=== PATIENT | female | born 1995 | race Caucasian/White ===

== ENCOUNTER 2016-05-11 21:36 | Inpatient (IN) | payer SELFPAY ==
[~2016-05-11] VITALS: Ht 160 cm; Wt 56.0 kg
[2016-05-11 21:37] VITALS: BP 116/74; PULSE 115; RESP 18; TEMP 100.5; O2SAT 96
--- NOTE | 2016-05-11 23:53 | PD ---
HPI Chief Complaint: Back/ Neck Pain or Injury Time Seen by Provider: 23:41 Travel History International Travel<30 days: No Contact w/Intl Traveler<30days: No Traveled to known affect area: No History of Present Illness HPI This is a 21-year-old female who presents to the emergency department having back pain that starts in her neck and radiates all the way down to her tailbone , constant, worsening over the past 24 hours ever since she drove from [place] to [facility], associated with some chills and nausea with several episodes of vomiting today. She does say she's had some urinary frequency but denies any dysuria. She has had a dry cough but no rhinorrhea or sore throat. She has a history of IV drug use when she was 17 years old but denies using since then. [facility] Past Medical History Narrative Medical Bipolar disorder, depression Social History Alcohol Use: Yes (socially) Tobacco Use: No Substance Use: Yes (used IV drugs last 4 years ago) Allergies-Medications (Allergen,Severity, Reaction): Coded Allergies: Flexeril (Verified Allergy, Severe, 05/11/16) Mushroom (Verified Allergy, Severe, 05/11/16) Tuna (Verified Allergy, Severe, 05/11/16) Review of Systems Except as stated in HPI: all other systems reviewed are Neg Physical Exam Narrative GENERAL:Well appearing, no acute distress SKIN: Warm and dry. HEAD: Atraumatic. Normocephalic. EYES: Pupils equal and round. No injection or drainage. ENT: Moist mucous membranes. No posterior pharyngeal erythema or exudates. NECK: Trachea midline. CARDIOVASCULAR: Regular rate and rhythm. No murmur appreciated. RESPIRATORY: Clear to auscultation. Breath sounds equal bilaterally. GASTROINTESTINAL: Abdomen soft, non-tender, nondistended. : Bilateral CVA tenderness. MUSCULOSKELETAL: Tender to palpation over the thoracic and lumbar spine and at the sacroiliac joint NEUROLOGICAL: Awake and alert. No obvious cranial nerve deficits. Moving all extremities. PSYCHIATRIC: Appropriate mood and affect; insight and judgment normal. Data Data Last Documented VS Vital Signs Date Time Temp Pulse Resp B/P Pulse Ox O2 Delivery O2 Flow Rate FiO2 05/12/16 03:36 98.1 94 18 106/54 98 Room Air Orders Complete Blood Count With Diff (05/11/16 23:48) Comprehensive Metabolic Panel (05/11/16 23:48) ^ Insert Iv (05/11/16 23:48) Urinalysis - C+S If Indicated (05/11/16 23:48) Influenzae A/B Antigen (05/11/16 23:48) Sodium Chlor 0.9% 1000 Ml Inj (Ns 1000 M (05/12/16 00:00) C-Reactive Protein (Crp) (05/11/16 23:48) Westergren Sedimentation Rate (05/11/16 23:48) Ketorolac Inj (Toradol Inj) (05/12/16 00:00) Ondansetron Inj (Zofran Inj) (05/12/16 00:00) Urine Culture (05/11/16 23:57) Blood Culture (05/12/16 01:15) Lactic Acid (05/12/16 01:15) Sodium Chlor 0.9% 1000 Ml Inj (Ns 1000 M (05/12/16 01:15) Vancomycin Inj (Vancomycin Inj) (05/12/16 01:15) Cefepime Inj (Maxipime Inj) (05/12/16 01:15) Ct Abd/Pel W Iv Contrast(Rout) (05/12/16 ) Ed Urine Pregnancytest Poc (05/12/16 01:31) Diphenhydramine Inj (Benadryl Inj) (05/12/16 04:15) Iohexol 350 Inj (Omnipaque 350 Inj) (05/12/16 04:11) Chest, Single Ap (05/12/16 ) Drug Screen, Random Urine (05/12/16 05:10) Vancomycin Consult Pharmacy (Vancomycin (05/12/16 05:15) Cefepime Inj (Maxipime Inj) (05/12/16 23:00) Albuterol-Ipratropium Neb (Duoneb Neb) (05/12/16 05:15) Admit To Inpatient (05/12/16 ) Vital Signs (Adult) Q4H (05/12/16 05:14) Activity Oob Ad Yolanda (05/12/16 05:14) Evp Chief Exploration Officer / Telemetry .CONTINUOUS (05/12/16 05:14) Intake + Output DAYA.QSHIFT (05/12/16 05:14) Diet Regular Basic (05/12/16 Breakfast) Sodium Chlor 0.9% 1000 Ml Inj (Ns 1000 M (05/12/16 05:14) Sodium Chloride 0.9% Flush (Ns Flush) (05/12/16 05:15) Sodium Chloride 0.9% Flush (Ns Flush) (05/12/16 09:00) Ondansetron Inj (Zofran Inj) (05/12/16 05:15) Bisacodyl Supp (Dulcolax Supp) (05/12/16 05:15) Comprehensive Metabolic Panel (05/13/16 06:00) Complete Blood Count With Diff (05/13/16 06:00) Scd Bilateral/Knee High DAYA.BID (05/12/16 05:14) Carlos Bilateral/Knee High DAYA.QSHIFT (05/12/16 05:14) Acetaminophen (Tylenol) (05/12/16 05:15) Oxycodone (Roxicodone) (05/12/16 05:15) Oxycodone (Roxicodone) (05/12/16 05:15) Inpatient Certification (05/12/16 ) Admit Order (Ed Use Only) (05/12/16 05:20) Labs Laboratory Tests Test 05/11/16 05/11/16 05/12/16 23:50 23:57 01:52 White Blood Count 27.8 TH/MM3 Red Blood Count 4.69 MIL/MM3 Hemoglobin 13.3 GM/DL Hematocrit 39.4 % Mean Corpuscular Volume 84.0 FL Mean Corpuscular Hemoglobin 28.3 PG Mean Corpuscular Hemoglobin 33.7 % Concent Red Cell Distribution Width 13.3 % Platelet Count 279 TH/MM3 Mean Platelet Volume 8.9 FL Neutrophils (%) (Auto) % Lymphocytes (%) (Auto) % Monocytes (%) (Auto) % Eosinophils (%) (Auto) % Basophils (%) (Auto) % Neutrophils # (Auto) TH/MM3 Lymphocytes # (Auto) TH/MM3 Monocytes # (Auto) TH/MM3 Eosinophils # (Auto) TH/MM3 Basophils # (Auto) TH/MM3 CBC Comment AUTO DIFF Differential Total Cells 100 Counted Neutrophils % (Manual) 91 % Lymphocytes % 7 % Monocytes % 1 % Basophils % 1 % Neutrophils # (Manual) 25.3 TH/MM3 Differential Comment FINAL DIFF MANUAL Platelet Estimate NORMAL Platelet Morphology Comment NORMAL Red Cell Morphology Comment NORMAL Erythrocyte Sedimentation Rate 42 mm/hr Sodium Level 135 MEQ/L Potassium Level 3.7 MEQ/L Chloride Level 102 MEQ/L Carbon Dioxide Level 22.6 MEQ/L Anion Gap 10 MEQ/L Blood Urea Nitrogen 10 MG/DL Creatinine 0.73 MG/DL Random Glucose 88 MG/DL Calcium Level 8.7 MG/DL Total Bilirubin 0.5 MG/DL Aspartate Amino Transf 5 U/L (AST/SGOT) Alanine Aminotransferase 12 U/L (ALT/SGPT) Alkaline Phosphatase 68 U/L C-Reactive Protein 19.90 MG/DL Total Protein 7.8 GM/DL Albumin 4.0 GM/DL Urine Color YELLOW Urine Turbidity HAZY Urine pH 6.0 Urine Specific [place] 1.017 Urine Protein 30 mg/dL Urine Glucose (UA) NEG mg/dL Urine Ketones 40 mg/dL Urine Occult Blood MOD Urine Nitrite NEG Urine Bilirubin NEG Urine Urobilinogen LESS THAN 2.0 MG/DL Urine Leukocyte Esterase TRACE Urine RBC 7 /hpf Urine WBC 10 /hpf Urine Squamous Epithelial 6 /hpf Cells Urine Bacteria RARE /hpf Urine Mucus MOD /lpf Microscopic Urinalysis Comment CULTURE INDICATED Lactic Acid Level 1.0 mmol/L MDM Medical Decision Making Medical Screen Exam Complete: Yes Emergency Medical Condition: Yes Interpretation(s) Fever, tachycardia Leukocytosis 91% neutrophils Inflammatory markers are elevated Electrolytes are reassuring Lactic acid is 1 Urinalysis: Scant white blood cells CT abdomen and pelvis: Multi-segmental consolidation left lower lung Differential Diagnosis Influenza, pyelonephritis, urinary tract infection, appendicitis, epidural abscess Narrative Course This is a 21-year-old female who presents to the emergency department with fever , vomiting, back pain and malaise. She is otherwise healthy with the exception of mental health issues. She is placed in a monitor and an IV was established. She was found to have a white count of 27.8. Her inflammatory markers were elevated. Lactic acid was reassuring. Blood cultures were obtained and the patient was covered with broad-spectrum antibiotics. She was tender in her abdomen so a CT abdomen and pelvis was obtained which was negative for intra- abdominal process but did demonstrate a left lower lobe pneumonia. Urinalysis demonstrated some scant white blood cells but not enough to explain an etiology of her symptoms. Patient reports she hasn't used IV drugs in several years so I have a lower suspicion for epidural abscess, discitis or endocarditis. Patient will be admitted for continued IV antibiotics in the setting of sepsis, likely source being pneumonia. Diagnosis Primary Impression: Pneumonia Qualified Code: J18.1 - Pneumonia of left lower lobe due to infectious organism Admitting Information Admitting Physician Requests: Admit Olga Kellogg MD May 11, 2016 23:53
[2016-05-12] MEDS ORDERED: ONDANSETRON HCL 4 MG/2 ML VIAL IV ONE
[2016-05-12] MEDS ORDERED: KETOROLAC TROMETHAMINE 30 MG/ML (IVP) VIAL IV PUSH ONE
[2016-05-12 00:27] LABS: HEMATOCRIT 39.4 % (35.0-46.0); MEAN CORPUSCULAR HEMOGLOBIN 28.3 PG (27.0-34.0); MEAN CORPUSCULAR HGB CONC 33.7 % (32.0-36.0); PLATELET COUNT 279 TH/MM3 (150-450); RED BLOOD COUNT 4.69 MIL/MM3 (4.00-5.30); RED CELL DISTRIBUTION WIDTH 13.3 % (11.6-17.2); WHITE BLOOD COUNT 27.8 TH/MM3 (4.0-11.0)
[2016-05-12 00:29] LABS: BACTERIA, URINE RARE /hpf; BLOOD, URINE MOD (NEG); COMMENT (UR) CULTURE INDICATED; CULTURE IF INDICATED CULTURE INDICATED; GLUCOSE,URINE NEG (NEG); KETONE, URINE 40 mg/dL (NEG); MUCUS URINE MOD /lpf (OCC); NITRITE,URINE NEG (NEG); SQUAMOUS EPITHELIAL CELL URINE 6 /hpf (0-5); URINE COLOR YELLOW (YELLW/STRAW)
[2016-05-12 00:38] LABS: HEMO FLAGS AUTO DIFF
[2016-05-12 00:50] LABS: ALT (GPT) 12 U/L (10-53); ANION GAP 10 MEQ/L (5-15); AST (GOT) 5 U/L (15-37); BICARBONATE 22.6 MEQ/L (21.0-32.0); BLOOD UREA NITROGEN 10 MG/DL (7-18); CHLORIDE 102 MEQ/L (98-107); POTASSIUM 3.7 MEQ/L (3.5-5.1); SODIUM (NA) 135 MEQ/L (136-145)
[2016-05-12 00:58] LABS: ALKALINE PHOSPHATASE 68 U/L (45-117); TOTAL BILIRUBIN ADULT 0.5 MG/DL (0.2-1.0)
[2016-05-12] MEDS ORDERED: SODIUM CHLOR 0.9% 1000 ML INJ 1,000 ML IV ONE ×2 (01:15)
[2016-05-12] MEDS ORDERED: VANCOMYCIN INJ 850 MG in SODIUM CHLOR 0.9% 250 ML INJ 250 ML IV ONE (01:15)
[2016-05-12] MEDS ORDERED: CEFEPIME INJ 2,000 MG in SODIUM CHLORIDE 0.9% INJ 100 ML IV ONE (01:15)
[2016-05-12 01:27] LABS: BASOPHILS 1 % (0-2); NEUTROPHIL # MANUAL DIFF 25.3 TH/MM3 (1.8-7.7); POLYS (SEG NEUTROPHILS) 91 % (16-70); WBC DIFF SAMPLE 100
[2016-05-12 01:28] LABS: PLATELET ESTIMATE SMEAR NORMAL (NORMAL); PLATELET MORPHOLOGY NORMAL (NORMAL); SCAN/DIFF FINAL DIFF MANUAL
[2016-05-12 03:36] VITALS: BP 106/54; PULSE 94; RESP 18; TEMP 98.1; O2SAT 98
[2016-05-12] MEDS ORDERED: IOHEXOL 350 MG/ML 10 ML VIAL (for RAD DIAG) IV ONE (04:11)
[2016-05-12] MEDS ORDERED: diphenhydrAMINE HCL 50 MG/ML VIAL IV PUSH ONE (04:15)
--- NOTE | 2016-05-12 04:24 | RADRPT ---
EXAM DATE/TIME: 05/12/2016 04:03 [facility] COMPARISON: No previous studies available for comparison. INDICATIONS : Diffuse abdominal and back pain with fever and vomiting. IV CONTRAST: 96 cc Omnipaque 350 (iohexol) IV ORAL CONTRAST: No oral contrast ingested. RADIATION DOSE: 9.96 CTDIvol (mGy) MEDICAL HISTORY : None SURGICAL HISTORY : None. ENCOUNTER: Initial ACUITY: 1 day PAIN SCALE: 7/10 LOCATION: Bilateral abdomen TECHNIQUE: Volumetric scanning of the abdomen and pelvis was performed. Using automated exposure control and ad justment of the mA and/or kV according to patient size, radiation dose was kept as low as reasonably achievable to obtain optimal diagnostic quality images. FINDINGS: LOWER LUNGS: Abnormal appearance the left lower lobe with greater than 7 cm area of dense consolidation posterior. On the coronal reconstruction images, the appearance suggests multisegmental consolidation or colla pse. The dense consolidation extends to the diaphragm. LIVER: Homogeneous density without lesion. There is no dilation of the biliary tree. No calcified gallston es. SPLEEN: Normal size without lesion. PANCREAS: Within normal limits. KIDNEYS: Normal in size and shape. There is no mass, stone or hydronephrosis. ADRENAL GLANDS: Within normal limits. VASCULAR: There is no aortic aneurysm. BOWEL/MESENTERY: The stomach, small bowel, and colon demonstrate no acute abnormality. There is no free intraperitone al air or fluid. ABDOMINAL WALL: Within normal limits. RETROPERITONEUM: There is no lymphadenopathy. BLADDER: No wall thickening or mass. REPRODUCTIVE: Anteverted uterus. No evidence of free fluid. INGUINAL: There is no lymphadenopathy or hernia. MUSCULOSKELETAL: Within normal limits for patient age. CONCLUSION: 1. Multisegmental consolidation or collapse in the left lower lobe. No evidence of pleural effusion. 2. No acute findings in the abdomen/pelvis. Adam Bee MD on May 12, 2016 at 4:18 Board Certified Radiologist. This report was verified electronically.
[2016-05-12] MEDS ORDERED: SODIUM CHLOR 0.9% 1000 ML INJ 1,000 ML IV SCH (05:14)
[2016-05-12] MEDS ORDERED: ACETAMINOPHEN 325 MG TAB PO PRN (05:15)
[2016-05-12] MEDS ORDERED: ONDANSETRON HCL 4 MG/2 ML VIAL IVP PRN (05:15)
[2016-05-12] MEDS ORDERED: Vancomycin Consult Pharmacy 1 EA OTHER SCH (05:15)
[2016-05-12] MEDS ORDERED: RESP: ALBUTEROL 2.5 MG/IPRATROPIUM 0.5 MG NEB (PRN) NEB (05:15)
[2016-05-12] MEDS ORDERED: BISACODYL 10 MG SUPP PR PRN (05:15)
[2016-05-12] MEDS ORDERED: SODIUM CHLORIDE 0.9% FLUSH 5 ML FLUSH FLUSH PRN (05:15)
--- NOTE | 2016-05-12 06:36 | RADRPT ---
EXAM DATE/TIME: 05/12/2016 05:30 [facility] COMPARISON: CT ABDOMEN & PELVIS W CONTRAST, May 12, 2016, 4:03. INDICATIONS : Chest pain and fever. MEDICAL HISTORY : None. SURGICAL HISTORY : None. ENCOUNTER: Initial ACUITY: 2 days PAIN SCORE: 8/10 LOCATION: Bilateral chest FINDINGS: There is a large area of consolidation in the retrocardiac region with loss of delineation of a porti on of the left hemidiaphragm. The right lung is clear. The heart is normal size. No evidence of pn eumothorax. CONCLUSION: Large area of consolidation left lower lung. Adam Bee MD on May 12, 2016 at 6:34 Board Certified Radiologist. This report was verified electronically.
[2016-05-12 06:48] VITALS: BP 90/52; PULSE 92; RESP 16; O2SAT 96
[2016-05-12] MEDS ORDERED: SODIUM CHLORID 0.9% 500 ML INJ 500 ML IV ONE (08:00)
[2016-05-12 08:41] VITALS: BP 99/51; PULSE 55; RESP 17; TEMP 96.9; O2SAT 98
[2016-05-12] MEDS ORDERED: SODIUM CHLORIDE 0.9% FLUSH 5 ML FLUSH FLUSH SCH (09:00)
[2016-05-12 11:31] LABS: AUTOMATED NEUTROPHIL # 14.8 TH/MM3 (1.8-7.7); BASOPHIL # 0.1 TH/MM3 (0-0.2); BASOPHIL % 0.4 % (0.0-2.0); EOSINOPHIL # 0.2 TH/MM3 (0-0.4); HEMO FLAGS DIFF FINAL; LYMPH % 14.8 % (9.0-44.0); LYMPHOCYTE # 2.8 TH/MM3 (1.0-4.8); MEAN CELL VOLUME 83.8 FL (80.0-100.0); MEAN CORPUSCULAR HEMOGLOBIN 28.1 PG (27.0-34.0); MEAN CORPUSCULAR HGB CONC 33.6 % (32.0-36.0); MONO % 6.7 % (0.0-8.0); NEUT % 77.1 % (16.0-70.0); PLATELET COUNT 235 TH/MM3 (150-450); RED BLOOD COUNT 3.82 MIL/MM3 (4.00-5.30); RED CELL DISTRIBUTION WIDTH 13.3 % (11.6-17.2); WHITE BLOOD COUNT 19.2 TH/MM3 (4.0-11.0)
[2016-05-12 12:10] VITALS: BP 95/54; PULSE 75; RESP 18; TEMP 97; O2SAT 98
--- NOTE | 2016-05-12 14:13 | HHI.HP ---
[facility] No Primary Care Physician Admission Diagnosis pneumonia Diagnoses: Chief Complaint: chest pain Travel History International Travel<30 Days: No Contact w/Intl Traveler <30 Da: No Traveled to Known Affected Are: No History of Present Illness 21-year-old female with h/o BD, depression, who presents to the emergency department with complaints of worsening back pain that starts in her neck and radiates all the way down to her tailbone, constant, worsening over the past 24 hours ever since she drove from [place] to [facility], associated with some chills and nausea with several episodes of vomiting. She does say she's had some urinary frequency but denies any dysuria. She has had a dry cough but no rhinorrhea or sore throat. She has a history of IV drug use when she was 17 years old but denies using since then. She feels very tired. She is able to eat. Review of Systems Except as stated in HPI: all other systems reviewed are Neg 12 system ROS reviewed and negative except as stated in HPI Past Family Social History Past Medical History Bipolar disorder, depression Past Surgical History No surgeries in the past Allergies: Coded Allergies: Flexeril (Verified Allergy, Severe, 05/11/16) Mushroom (Verified Allergy, Severe, 05/11/16) Tuna (Verified Allergy, Severe, 05/11/16) Family History Clearances siblings are healthy Heart problems : paternal parents Social History EtOH use socially Denied tobacco use. IVDA: used IV drugs last 4 years ago, none since then Physical Exam Vital Signs Vital Signs Date Time Temp Pulse Resp B/P Pulse Ox O2 Delivery O2 Flow Rate FiO2 05/12/16 12:10 97.0 75 18 95/54 98 05/12/16 08:41 96.9 55 17 99/51 98 05/12/16 06:48 92 16 90/52 96 Room Air 05/12/16 03:36 98.1 94 18 106/54 98 Room Air 05/11/16 23:52 18 05/11/16 21:37 100.5 115 18 116/74 96 Room Air Physical Exam GENERAL: This is a young 21 yo female, well-nourished, well-developed patient, sleepy. SKIN: No rashes, ecchymoses or lesions. Cool and dry. HEAD: Atraumatic. Normocephalic. No temporal or scalp tenderness. EYES: Pupils equal round and reactive. Extraocular motions intact. No scleral icterus. No injection or drainage. ENT: Nose without bleeding, purulent drainage or septal hematoma. Throat without erythema, tonsillar hypertrophy or exudate. Uvula midline. Airway patent. NECK: Trachea midline. No JVD or lymphadenopathy. Supple, nontender, no meningeal signs. CARDIOVASCULAR: Regular rate and rhythm without murmurs, gallops, or rubs. RESPIRATORY: Crackles worse on right lower base of lung. No wheezes, rales, or rhonchi. GASTROINTESTINAL: Abdomen soft, non-tender, nondistended. No hepato-splenomegaly , or palpable masses. No guarding. MUSCULOSKELETAL: Extremities without clubbing, cyanosis, or edema. No joint tenderness, effusion, or edema noted. No calf tenderness. Negative Homans sign bilaterally. NEUROLOGICAL: Awake and alert. Cranial nerves II through XII intact. Motor and sensory grossly within normal limits. Five out of 5 muscle strength in all muscle groups. Normal speech. Laboratory Laboratory Tests Test 05/11/16 05/11/16 05/12/16 05/12/16 23:50 23:57 01:52 11:19 White Blood Count 27.8 19.2 Red Blood Count 4.69 3.82 Hemoglobin 13.3 10.8 Hematocrit 39.4 32.0 Mean Corpuscular Volume 84.0 83.8 Mean Corpuscular Hemoglobin 28.3 28.1 Mean Corpuscular Hemoglobin 33.7 33.6 Concent Red Cell Distribution Width 13.3 13.3 Platelet Count 279 235 Mean Platelet Volume 8.9 8.7 Neutrophils (%) (Auto) 77.1 Lymphocytes (%) (Auto) 14.8 Monocytes (%) (Auto) 6.7 Eosinophils (%) (Auto) 1.0 Basophils (%) (Auto) 0.4 Neutrophils # (Auto) 14.8 Lymphocytes # (Auto) 2.8 Monocytes # (Auto) 1.3 Eosinophils # (Auto) 0.2 Basophils # (Auto) 0.1 CBC Comment AUTO DIFF DIFF FINAL Differential Total Cells 100 Counted Neutrophils % (Manual) 91 Lymphocytes % 7 Monocytes % 1 Basophils % 1 Neutrophils # (Manual) 25.3 Differential Comment FINAL DIFF MANUAL Platelet Estimate NORMAL Platelet Morphology Comment NORMAL Red Cell Morphology Comment NORMAL Erythrocyte Sedimentation Rate 42 Sodium Level 135 Potassium Level 3.7 Chloride Level 102 Carbon Dioxide Level 22.6 Anion Gap 10 Blood Urea Nitrogen 10 Creatinine 0.73 Random Glucose 88 Calcium Level 8.7 Total Bilirubin 0.5 Aspartate Amino Transf 5 (AST/SGOT) Alanine Aminotransferase 12 (ALT/SGPT) Alkaline Phosphatase 68 C-Reactive Protein 19.90 Total Protein 7.8 Albumin 4.0 Urine Color YELLOW Urine Turbidity HAZY Urine pH 6.0 Urine Specific [place] 1.017 Urine Protein 30 Urine Glucose (UA) NEG Urine Ketones 40 Urine Occult Blood MOD Urine Nitrite NEG Urine Bilirubin NEG Urine Urobilinogen LESS THAN 2.0 Urine Leukocyte Esterase TRACE Urine RBC 7 Urine WBC 10 Urine Squamous Epithelial 6 Cells Urine Bacteria RARE Urine Mucus MOD Microscopic Urinalysis Comment CULTURE INDICATED Lactic Acid Level 1.0 Date/Time Procedure Status Source Growth 05/12/16 01:50 Aerobic Blood Culture Received Blood Peripheral Pending 05/12/16 01:50 Anaerobic Blood Culture Received Blood Peripheral Pending 05/11/16 23:57 Urine Culture - Preliminary Resulted Urine Clean Catch RESULTS PENDING 05/11/16 23:54 Influenza Types A,B Antigen (ROGER) - Final Complete Nasal Washing NEGATIVE FOR FLU A AND B ANTIGEN.... Result Diagram: 05/12/16 1119 05/11/16 2350 Assessment and Plan Assessment and Plan Sepsis /PNA, with leukocytosis/ bandemia/tachycardia CXR reviewed On IV abx rocephin and azithromycin Blood cx pending Sputum cx pending Check legionella /pneumococcal ag Duonebs as need Mucinex O2 supplement keep O2 sat > 94% BP into a lower side. received 2L bolus in the ED. give additional 500 cc bolus and continue IVF DVt ppx SCD/teds /lovenox Patient had her boyfriend visiting, she says she wants to live AMA and she will go in [place] and will go to ER there. Patient left AMA Discussed Condition With patient, nurse Physician Certification 2 Midnight Certification Type: Admission for Inpatient Services Order for Inpatient Services The services are ordered in accordance with Medicare regulations or non- Medicare payer requirements, as applicable. In the case of services not specified as inpatient-only, they are appropriately provided as inpatient services in accordance with the 2-midnight benchmark. Estimated LOS (days): 3 days is the estimated time the patient will need to remain in the hospital, assuming treatment plan goals are met and no additional complications. Post-Hospital Plan: Home Ria Fatima MD May 12, 2016 14:13
[2016-05-12] MEDS ORDERED: VANCOMYCIN 1,000 MG/NS 250 ML IV SCH ×2 (15:00)
[2016-05-12] MEDS ORDERED: CEFEPIME INJ 1,000 MG in SODIUM CHLORIDE 0.9% INJ 100 ML IV SCH (23:00)
[2016-05-14] MEDS ORDERED: PHARMACY ORDERED LAB XX ONE (02:45)
== END 2016-05-12 14:21 | disposition left against medical advice (07) | DRG 871 ==
LOC: NEPE 21:36 → NEDA 05-12 05:33 → N05B 05-12 08:24
PROVIDERS: ADMIT Hospitalist; ATTEND Hospitalist
DX: A41.9 Sepsis, unspecified organism (principal); J18.9 Pneumonia, unspecified organism; F31.9 Bipolar disorder, unspecified; R11.2 Nausea with vomiting, unspecified; M54.9 Dorsalgia, unspecified; R35.0 Frequency of micturition
CPT/HCPCS: 71010; 74177; 80053; 81001; 83605; 84703; 85007; 85025; 85027; 85652; 86140; 87040; 87086; 87804; 94664; 96361; 96365; 96366; 96368; 96375; J0692; J1200; J1885; J2405; J3370; J7030; J7040; J7050; Q9967